=== PATIENT | male | born 1980 | race Caucasian/White ===

== ENCOUNTER 2022-01-31 08:10 | Emergency (ER) | payer OTHER, SELFPAY ==
--- NOTE | 2022-01-31 08:11 | ED.URI ---
HPI - URI/Sore Throat General Chief Complaint: Upper Respiratory Infection Stated Complaint: Sore Throat Time Seen by Provider: 01/31/22 08:25 Source: patient, family, RN notes reviewed and old records reviewed Mode of arrival: ambulatory Limitations: no limitations History of Present Illness HPI Narrative: 41-year-old male presents to the [facility] with complaints of a sore throat, postnasal drip, congestion for 1 week. Has tried guaifenesin DM with minimal relief Patient has no concerns for influenza or COVID, states he has had COVID 3 and is vaccinated and boosted. Declined testing at this time MD elicited complaint: sore throat and rhinorrhea Related Data Allergies Allergy/AdvReac Type Severity Reaction Status Date / Time amoxicillin Allergy Intermediate Hives Unverified 01/31/22 08:32 Review of Systems Review of Systems: All systems reviewed & are unremarkable except as noted in HPI and below Constitutional: Constitutional: Reports no additional constitutional complaints, Denies chills, Denies fever(s) and Denies headache(s) Eyes: Eyes: Reports no additional eye complaints ENT: Reports as per HPI, Denies vertigo, Denies dizziness, Denies headache(s), Denies nasal congestion and Reports sore throat Cardiovascular: Cardiovascular: Reports no additional cardiovascular complaints, Denies chest pain, Denies syncope, Denies rapid heart rate and Denies dyspnea Respiratory: Respiratory: Reports no additional respiratory complaints, Denies cough, Denies dyspnea and Denies wheezing Gastrointestinal: Gastrointestinal: Reports no additional gastrointestinal complaints, Denies abdominal pain, Denies diarrhea, Denies nausea and Denies vomiting Musculoskeletal: Musculoskeletal: Reports no additional musculoskeletal complaints, Denies back pain and Denies numbness Integumentary/Breasts: Skin/Breast: Reports system reviewed and no additional complaints, except as docu Neurologic: Reports system reviewed and no additional complaints, except as documented, Denies vertigo, Denies dizziness, Denies syncope, Denies headache(s), Denies focal weakness and Denies numbness Psychiatric: Psychiatric: Reports no additional psychiatric complaints Allergic/Immunologic: Allergic/Immunologic: Reports no additional allergic/immunologic complaints and Denies wheezing PMFSH Past Medical History Medical History Patient denies medical problems Surgical History Surgical History No pertinent past surgical history Social History Social History (Updated 01/31/22 @ 09:02 by Carlyn Clarke APRN) Smoking status: Current every day smoker Comments At the time of my signature, I reviewed and agree with the nursing past medical, surgical, social, and family history. There is no relevant family history pertinent to the patient complaint. Exam Const: General: cooperative, healthy appearing, no acute distress, well developed and alert Nutritional Appearance: well nourished Orientation/consciousness: patient oriented x3 Limitations: no limitations HENMT: Head: normal to inspection Ears: external ears normal, TM's normal bilaterally and EAC's normal General nose exam: Normal nares present Mouth: Yes moist mucous membranes Throat: tonsils normal, uvula midline and postnasal drainage Eyes: Conjunctivae: conjunctivae normal Pupils: Equal, round and reactive pupils present Neck: Neck: normal visual inspection, no lymphadenopathy and no meningeal signs Chest: Chest palpation & inspection: normal inspection of the chest Resp: Effort & Inspection: normal respiratory effort and no use of accessory muscles Auscultation: clear to auscultation bilaterally, no crackles, no rales, no rhonchi and no wheezes Cardio: Rate: regular rate Rhythm: regular rhythm Skin: General skin exam: normal color Rashes: no rashes Wounds: no wounds Neuro: General: p
[2022-01-31 08:23] VITALS: BP 150/90; PULSE 97; RESP 16; TEMP 36.3; O2SAT 99
== END 2022-01-31 08:50 | disposition home or self-care (01) ==
PROVIDERS: Emergency Provider Nurse Practitioner
DX: J02.9 Acute pharyngitis, unspecified (principal); J30.9 Allergic rhinitis, unspecified; R09.82 Postnasal drip; F17.200 Nicotine dependence, unspecified, uncomplicated
CPT/HCPCS: 87081; 87880; 99213; G0463

== ENCOUNTER 2022-02-02 17:44 | Emergency (ER) | payer OTHER, SELFPAY ==
[2022-02-02 17:52] VITALS: BP 146/99; PULSE 82; RESP 16; TEMP 36.9; O2SAT 99
--- NOTE | 2022-02-02 17:56 | ED.EAR ---
HPI - Ear Problem General Chief complaint: Ear Stated complaint: ear pain Time Seen by Provider: 02/02/22 17:56 Source: patient Mode of arrival: ambulatory Limitations: no limitations History of Present Illness HPI Narrative: 41-year-old male presents with complaint of pain to left ear pain that started today. Reports that he was recently seen at urgent care for congestion, runny nose, postnasal drip. Has started daily Claritin and Flonase. At that time he did not have ear pain. Denies fever chills. States left ear feels like he is underwater . All systems reviewed and negative except as noted above. Related Data Allergies Allergy/AdvReac Type Severity Reaction Status Date / Time amoxicillin Allergy Intermediate Hives Unverified 01/31/22 08:32 Review of Systems Review of Systems: CONSTITUTIONAL: Denies fever, chills, or sweats. EYES: Denies visual changes, redness, or discharge. ENT: Denies rhinorrhea, congestion, sore throat. Reports left ear pain. CARDIOVASCULAR: Denies chest pain, palpitations, or edema. RESPIRATORY: Denies cough or dyspnea. GASTROINTESTINAL: Denies abdominal pain, nausea, vomiting, or diarrhea. GENITOURINARY: Denies dysuria or hematuria. SKIN: Denies rash or itching. MUSCULOSKELETAL: Denies back pain, joint pain, or myalgia. NEUROLOGIC: Denies headache, numbness, or weakness. PSYCHIATRIC: Denies anxiety or depression. All other systems reviewed are negative, except as documented in HPI. [facility] Past Medical History Medical History Patient denies medical problems Surgical History Surgical History No pertinent past surgical history Social History Social History (Updated 01/31/22 @ 09:02 by Carlyn Clarke APRN) Smoking status: Current every day smoker Comments At time of signature, agree with nursing past medical, surgical, social and family history. There is no relevant family history pertinent to the presenting complaint. Exam Narrative: GENERAL: This is a well-nourished, well-developed patient, in no apparent distress. HEAD: normocephalic, atraumatic. EYES: PERRL. Sclera clear/white. Vision is grossly intact. EARS: External ears normal, auditory canals clear and without drainage, left TM is erythematous, purulent and bulging. Right TM is normal. NOSE: External nose normal with clear nasal drainage. THROAT: Mucous membranes moist, posterior pharynx clear. NECK: Neck supple, non-tender without lymphadenopathy, masses or thyromegaly. CARDIOVASCULAR: Regular rate and rhythm without murmurs, gallops, or rubs. RESPIRATORY: Clear to auscultation. Breath sounds equal bilaterally. No wheezes, rales, or rhonchi. SKIN: warm, Dry, intact with no suspicious lesions or rash, good texture and turgor. NEURO: awake, alert, and oriented to person, place and time. There were no obvious focal neurologic abnormalities. EXTREMITIES: Normal range of motion to all extremities. Course Course Level of Care: Express Care Visit Vital Signs Vital signs: Vital Signs Temperature 36.9 C 02/02/22 17:52 Pulse Rate 82 02/02/22 17:52 Respiratory Rate 16 02/02/22 17:52 Blood Pressure 146/99 H 02/02/22 17:52 Pulse Oximetry 99 02/02/22 17:52 Oxygen Delivery Room Air 02/02/22 17:52 Temperature 36.9 C 02/02/22 17:52 Pulse Rate 82 02/02/22 17:52 Respiratory Rate 16 02/02/22 17:52 Blood Pressure 146/99 H 02/02/22 17:52 Pulse Oximetry 99 02/02/22 17:52 Oxygen Delivery Room Air 02/02/22 17:52 Reviewed Medical Decision Making MDM Narrative Medical decision making narrative: Patient is aware of diagnosis, understands and agrees to treatment plan. Anticipatory guidance given. Patient agrees to follow-up as directed and is aware of reasons to seek care at the emergency department. Portions of this record may have been created with voice recognition software Vi
== END 2022-02-02 18:10 | disposition home or self-care (01) ==
PROVIDERS: Emergency Provider Nurse Practitioner Family
DX: H66.92 Otitis media, unspecified, left ear (principal)
CPT/HCPCS: 99213; G0463

== ENCOUNTER 2022-11-16 09:03 | Emergency (ER) | payer OTHER, SELFPAY ==
[2022-11-16 09:14] VITALS: BP 127/80; PULSE 74; RESP 16; TEMP 37.1; O2SAT 99
--- NOTE | 2022-11-16 10:37 | ED.URI ---
HPI - URI/Sore Throat General Chief Complaint: Upper Respiratory Infection Stated Complaint: uri Time Seen by Provider: 11/16/22 10:31 History of Present Illness HPI Narrative: 42-year-old male presented for complaint of sore throat, itchy eyes, and runny nose over the last 3 days. He also reports at the onset of symptoms he was stung by a bee, he went to the emergency room and was given a steroid injection as well as a prescription for prednisone which she has been compliant this week. Reports resolution of the arm swelling from the bee. He also took Benadryl this morning for symptoms. He denies shortness of breath, wheezing, difficulty swallowing, lip/tongue swelling, drooling, nausea, vomiting, diarrhea, fevers or chills. He endorses sick contacts with strep. Related Data Home Medications Medication Instructions Recorded Confirmed prednisone 10 mg tablet 10 mg PO DIRECTED 11/16/22 11/16/22 Allergies Allergy/AdvReac Type Severity Reaction Status Date / Time amoxicillin Allergy Intermediate Hives Verified 11/16/22 09:36 Review of Systems Review of Systems: CONSTITUTIONAL: Denies body aches, fever, chills, or sweats. EYES: Denies visual changes, redness, or discharge. ENT: reports rhinorrhea, congestion, denies otalgia. CARDIOVASCULAR: Denies chest pain, palpitations, or edema. RESPIRATORY: Denies dyspnea. GASTROINTESTINAL: Denies abdominal pain, nausea, vomiting, or diarrhea. SKIN: Denies rash, itching, or wounds. MUSCULOSKELETAL: Denies back pain, joint pain, or myalgia. NEUROLOGIC: Denies headache PMFSH Past Medical History Medical History Patient denies medical problems Surgical History Surgical History No pertinent past surgical history Social History Social History (System 07/26/22 @ 13:08 by Elfego Ramachandran) Smoking status: Current every day smoker Exam Narrative: GENERAL: mildly ill-appearing, no acute distress. EYES: conjunctivae clear ENT: Mucous membranes moist. TMs pearly figueroa with normal light reflex bilaterally; no tragal tenderness. Oropharynx erythematous without lesions. Tonsils without exudate. No lip/tongue swelling. No drooling, no hoarseness, no trismus, uvula midline. No tripod positioning, hot potato voice, or soft palate swelling. NECK: Supple. No lymphadenopathy CHEST: Clear to auscultation, breath sounds equal. HEART: Regular rate and rhythm. No murmur heard. SKIN: Warm, dry, no rash. NEURO: Alert and oriented x3. Course Course Emergency Course: Patient is aware of diagnosis, understands and agrees to treatment plan. Anticipatory guidance given. Patient agrees to follow-up as directed and is aware of reasons to seek care at the emergency department. Portions of this record may have been created with voice recognition software Level of Care: Express Care Visit Vital Signs Vital signs: Vital Signs Temperature 98.7 F 11/16/22 09:14 Pulse Rate 74 11/16/22 09:14 Respiratory Rate 16 11/16/22 09:14 Blood Pressure 127/80 11/16/22 09:14 Pulse Oximetry 99 11/16/22 09:14 Oxygen Delivery Room Air 11/16/22 09:14 Temperature 98.7 F 11/16/22 09:14 Pulse Rate 74 11/16/22 09:14 Respiratory Rate 16 11/16/22 09:14 Blood Pressure 127/80 11/16/22 09:14 Pulse Oximetry 99 11/16/22 09:14 Oxygen Delivery Room Air 11/16/22 09:14 MDM - URI/Sore Throat MDM Narrative Medical decision making narrative: strep result reviewed with pt.Advise supportive treatments. Patient is appropriate for outpatient treatment and follow-up. Differential Diagnosis Differential diagnosis: Likely upper respiratory infection, sinusitis, viral infection, influenza and pharyngitis Lab Data Labs: Strep Screen Presumptive Negative *(Reference Range: Negative)* Discharge Plan Disch
== END 2022-11-16 10:48 | disposition home or self-care (01) ==
PROVIDERS: Emergency Provider Nurse Practitioner Family
DX: J02.9 Acute pharyngitis, unspecified (principal); F17.200 Nicotine dependence, unspecified, uncomplicated
CPT/HCPCS: 87081; 87880; 99213; G0463

== ENCOUNTER 2023-10-30 13:52 | Emergency (ER) | payer OTHER, SELFPAY ==
--- NOTE | ~2023-10-30 | XR_ITS ---
EXAMINATION: XR elbow RT min 3V DATE: 10/30/2023 14:18 INDICATION: Right elbow injury TECHNIQUE: Anteroposterior, two oblique and lateral views of the right elbow were obtained. COMPARISON: None. FINDINGS: Alignment is normal. Tiny corticated ossicle is smooth margins either a degenerative loose body or se quela of old trauma near the tip of the coronoid process. No acute fracture or joint effusion. Osteoa rthritis at the right elbow with mild to moderate joint space narrowing at the radiocapitellar articu lation and mild osteoarthritis at the ulnotrochlear and proximal radioulnar articulations. Soft tissu es are unremarkable. IMPRESSION: 1. 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 No acute fracture or joint effusion. Reviewed, dictated and finalized at location [facility]. [facility] IMPRESSION: 1. 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 No acute fracture or richard nt effusion.
--- NOTE | 2023-10-30 14:02 | ED.UPPEXIN ---
HPI - Extremity Injury (Upper) General Chief Complaint: Extremity Injury, Upper Stated Complaint: right arm injury Time Seen by Provider: 10/30/23 14:04 Source: patient and RN notes reviewed Mode of arrival: ambulatory Limitations: no limitations History of Present Illness HPI narrative: 43-year-old male presents with concern for right elbow pain. Reports at work he slipped on the ice and fell into a metal basket. 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 MD complaint: injury to: right and elbow Related Data Home Medications Medication Instructions Recorded Confirmed No Home Medications 10/30/23 10/30/23 Allergies Allergy/AdvReac Type Severity Reaction Status Date / Time amoxicillin Allergy Intermediate Hives Verified 10/30/23 14:04 Review of Systems Review of Systems: CONSTITUTIONAL: Denies malaise, chills, sweats, or fever. SKIN: Denies rash or itching, open skin, laceration, abrasion, redness, warmth, swelling. MUSCULOSKELETAL: Reports right elbow pain NEUROLOGIC: Denies numbness, weakness All systems reviewed & are unremarkable except as noted in HPI and below PMFSH Past Medical History Medical History Patient denies medical problems Surgical History Surgical History No pertinent past surgical history Social History Social History (System 07/26/22 @ 13:08 by Elfego Ramachandran) Smoking status: Current every day smoker Comments At time of signature, agree with nursing past medical, surgical, social and family history. There is no relevant family history pertinent to the presenting complaint Exam Narrative: GENERAL: Well-appearing, well-nourished, and in no acute distress. HEAD: Normocephalic, atraumatic. EYES: PERRLA, conjunctivae clear NECK: Supple. CHEST: Speaks in full sentences. No respiratory distress. HEART: Regular rate and rhythm. Normal and equal peripheral pulses. EXTREMITIES: Right elbow, wrist, hand, digits have grossly normal strength and sensation, normal range of motion. No edema or ecchymosis. Normal sensation with sensitivity to light touch and pain. Medial elbow tenderness. No open wounds, no skin tenting, no devitalized tissue or atrophy, no trophic changes, no obvious deformity, alignment normal, nearby joints and structures intact. Distal pulses palpable and equal bilaterally, skin warm, dry, pink. Capillary refill less than 3 seconds. SKIN: Warm, dry, no rash. NEURO: Alert and oriented x3. PSYCH: Normal mood and affect Course Course Emergency Course: Patient is aware of diagnosis, understands and agrees to treatment plan. Anticipatory guidance given. Patient agrees to follow-up as directed and is aware of reasons to seek care at the emergency department. Portions of this record may have been created with voice recognition software Level of Care: Express Care Visit Vital Signs Vital signs: Reviewed. MDM - Extremity Injury (Upper) MDM Narrative Medical decision making narrative: Patients injury and pain is consistent with musculoskeletal etiology. No signs of neurological or vascular compromise on exam. Compartments and tissues are soft without signs of compartment syndrome. Pain is felt appropriate for further evaluation on an outpatient basis. Imaging Data My impression: Images reviewed, interpreted by radiologist, agree, see report. Radiologist's impression: EXAMINATION: XR elbow RT min 3V DATE: 10/30/2023 14:18 INDICATION: Right elbow injury TECHNIQUE: Anteroposterior, two oblique and lateral views of the right elbow were obtained. COMPARISON: None. FINDINGS: Alignment is normal. Tiny corticated ossicle is smooth margins either a degenerative loose body or sequela of old trauma near the tip of the coronoid process. No acute fracture or joint effusion. 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
[2023-10-30 14:04] VITALS: BP 154/89; PULSE 90; RESP 16; TEMP 37.3; O2SAT 100
== END 2023-10-30 14:39 | disposition home or self-care (01) ==
PROVIDERS: Emergency Provider Nurse Practitioner
DX: M25.521 Pain in right elbow (principal); F17.200 Nicotine dependence, unspecified, uncomplicated
CPT/HCPCS: 73080; 99213; G0463